=== PATIENT | female | born 1995 | race Caucasian/White ===

== ENCOUNTER 2024-02-18 14:31 | Emergency (ER) | payer MEDICAID | END 2024-02-18 15:56 | disposition home or self-care (01) | LOC: NAV ERS 14:31 | DX: O03.9 Complete or unspecified spontaneous abortion without complication (principal); O99.331 Smoking (tobacco) complicating pregnancy, first trimester; F17.290 Nicotine dependence, other tobacco product, uncomplicated; E66.9 Obesity, unspecified; Z3A.01 Less than 8 weeks gestation of pregnancy | CPT/HCPCS: 84702; 99284 ==